=== PATIENT | female | born 1965 | race Caucasian/White ===

== ENCOUNTER 2021-02-21 18:48 | Observation (INO) ==
[2021-02-21 20:38] LABS: Basophils # 0.1 10*3/uL (0.0-0.2); Basophils % 0.5 % (0.0-0.8); Eosinophils # 0.1 10*3/uL (0.0-0.87); Eosinophils % 0.8 % (0.00-10.9); Hemoglobin 13.9 GM/DL (12.0-16.0); Immature Granulocytes % 0.3 %; Immature Granulocytes Absolute 0.04 #; Lymphocytes # 1.9 10*3/uL (1.4-4.0); Mean Corpuscular HGB Conc 32.3 GM/DL (32-36); Mean Corpuscular Volume 94.1 FL (87-102); Mean Platelet Volume 9.7 FL (9.6-12.0); Monocytes % 6.7 % (1.7-12.7); Neutrophils % 76.7 % (38.7-73.9); Platelet Count 214 T/CUMM (130-400); Red Blood Count 4.57 MC/CUMM (3.8-5.5); Red Cell Distribution Width 12.9 % (9.3-17.3); White Blood Count 12.3 T/CUMM (4-12)
[2021-02-21 20:40] LABS: Bilirubin,Urine Negative (Negative); Blood, Urine Negative (Negative); Glucose,Urine (UA) Negative (Negative); Ketones,Urine Negative (Negative); Mucus,Urine Occasional /LPF (Occasional); Nitrite,Urine Negative (Negative); Protein,Urine Negative; RBC,Urine 1 /HPF (0-4); Squamous Epithelial Cell,Urine Occasional /HPF (0-10); Urine Appearance CLEAR (Clear); Urine Color Yellow (Yellow); Urine Urobilinogen < 2.0 EU/DL (0.2-1.0)
[2021-02-21 21:15] LABS: Albumin 3.3 G/DL (3.4-5.0); Bilirubin,Total 0.7 MG/DL (0.20-1.00); Calcium 8.9 MG/DL (8.5-10.1); Osmolality,Calculated 276.5 MOS/KG (273-304); Potassium 4.2 MMOL/L (3.5-5.1); Total Protein 6.7 G/DL (6.4-8.2)
[2021-02-21] MEDS ORDERED: SODIUM CHLORIDE 0.9% 1,000 ML IV SCH (22:30)
[2021-02-21] MEDS ORDERED: KETOROLAC 30 MG/1 ML VIAL IV STA (22:38)
[2021-02-22] MEDS: PIPERACILLIN/TAZOBACTAM 3,375 MG in SODIUM CHLORIDE 0.9% 100 ML IV SCH ×3 (00:15→11:47)
[2021-02-22] MEDS ORDERED: KETOROLAC 15 MG/1 ML VIAL IV PRN (03:00)
[2021-02-22] MEDS ORDERED: HYDROmorphone 2 MG/1 ML VIAL IV PRN ×3 (03:01→11:44)
[2021-02-22] MEDS ORDERED: MEPERIDINE 25 MG/1 ML VIAL IV PRN (08:56)
[2021-02-22] MEDS ORDERED: PROMETHAZINE INJ 25 MG in SODIUM CHLORIDE 0.9% 50 ML IV PRN (08:56)
[2021-02-22] MEDS ORDERED: ONDANSETRON 4 MG/2 ML VIAL IV PRN ×2 (08:56→11:44)
[2021-02-22] MEDS ORDERED: diphenhydrAMINE 50 MG/1 ML VIAL IV PRN (08:56)
[2021-02-22] MEDS ORDERED: BUPIVACAINE MPF 0.25% 30 ML VIAL ONE (09:42)
[2021-02-22] MEDS ORDERED: LIDOCAINE 1%/EPI INJ 20 ML VIAL ONE (09:42)
[2021-02-22] MEDS ORDERED: TISSUE ADHESIVE 1 EACH APPLICATOR TOP ONE (09:43)
[2021-02-22] MEDS ORDERED: MIDAZOLAM 2 MG/2 ML VIAL ONE (10:07)
[2021-02-22] MEDS ORDERED: fentaNYL 100 MCG/2 ML VIAL ONE (10:20)
[2021-02-22] MEDS ORDERED: SODIUM CHLORIDE 0.9% 100 ML IV ONE (10:23)
[2021-02-22] MEDS ORDERED: DESFLURANE 1 UNIT/15 MINUTE INH ONE (10:32)
[2021-02-22] MEDS ORDERED: SUCCINYLCHOLINE 200 MG/10 ML VIAL ONE (10:32)
[2021-02-22] MEDS ORDERED: DEXAMETHASONE 4 MG/1 ML VIAL ONE (10:32)
[2021-02-22] MEDS ORDERED: LIDOCAINE 2% 5 ML VIAL ONE (10:32)
[2021-02-22] MEDS ORDERED: ROCURONIUM 50 MG/5 ML VIAL IV ONE (10:32)
[2021-02-22] MEDS ORDERED: ONDANSETRON 4 MG/2 ML VIAL ONE (10:32)
[2021-02-22] MEDS ORDERED: propofoL 200 MG/20 ML VIAL IV ONE (10:32)
[2021-02-22] MEDS ORDERED: GLYCOPYRROLATE 0.4 MG/2 ML VIAL ONE ×2 (10:42→10:43)
[2021-02-22] MEDS ORDERED: NEOSTIGMINE 10 MG/10 ML VIAL ONE (10:42)
[2021-02-22] MEDS ORDERED: KETOROLAC 30 MG/1 ML VIAL ONE (10:52)
[2021-02-22] MEDS ORDERED: CYANOCOBALAMIN 1000 MCG/1 ML VIAL IM SCH (11:44)
[2021-02-22] MEDS ORDERED: PROMETHAZINE 25 MG/1 ML VIAL IM PRN (11:44)
[2021-02-22] MEDS ORDERED: LACTATED RINGERS 1,000 ML IV SCH (11:44)
[2021-02-22] MEDS ORDERED: CYCLOBENZAPRINE 10 MG TABLET PO PRN (12:00)
[2021-02-22] MEDS ORDERED: KETOROLAC 30 MG/1 ML VIAL IV SCH (12:30)
[2021-02-22 17:29] VITALS: BP 114/55
[2021-02-23] MEDS ORDERED: ENOXAPARIN 40 MG/0.4 ML SYRINGE SUBCUT SCH (05:00)
[2021-02-23] MEDS ORDERED: LEVOTHYROXINE 137 MCG TABLET PO SCH (07:00)
[2021-02-23] MEDS ORDERED: CHOLECALCIFEROL 1,000 UNIT TABLET PO SCH (09:00)
[2021-02-23] MEDS ORDERED: PANTOPRAZOLE 40 MG TABLET PO SCH (09:00)
[2021-02-23] MEDS ORDERED: buPROPion SR 150 MG TABLET PO SCH (09:00)
== END 2021-02-22 16:50 | disposition home or self-care (01) | DRG 343 ==
LOC: N.ED 18:48 → N.TELES 22:00 → INTOOBSV 22:10 → N.EDINP 22:10 → N.TELES 23:05
PROVIDERS: ADMIT Surgery; ATTEND Surgery